=== PATIENT | female | born 1935 | race Caucasian/White ===

== ENCOUNTER → 2023-07-25 10:54 | Outpatient (CLI) | payer MEDICARE, OTHER, SELFPAY ==
--- NOTE | 2023-07-25 | DI.MRI.S_ITS ---
PROCEDURE: MR LUMBAR SPINE WO CON INDICATIONS: LEFT SI RADICULOPATHY TECHNIQUE: Noncontrast sagittal T1 spin echo and T2 fast echo, sagittal STIR, and T2 fast spin echo through the lumbar spine. In cases with scoliosis, additional coronal T2 fast spin echo may be performed. COMPARISON: None. FINDINGS: Image quality: Excellent. Alignment and Curvature: Straightening of the normal lumbar lordosis. Bone Marrow: Multilevel Schmorl's nodes and degenerative endplate changes. Marrow is of normal overall signal. No acute vertebral body compression fractures. Spinal Cord: Conus medullaris terminates at the L1 level. Visualized cord demonstrates normal signal and size. Paraspinous Soft Tissues: No paravertebral masses. T12-L1: Disc desiccation and mild disc bulge. Facet arthropathy. No central canal or neural foraminal stenosis. L1-L2: Disc desiccation and height loss. Posterior disc bulge. Facet arthropathy. No central canal or neural foraminal stenosis. L2-L3: Disc desiccation and height loss. Posterior disc bulge. Facet arthropathy. Mild central canal stenosis. Mild bilateral neural foraminal stenosis. L3-L4: Disc desiccation height loss. Posterior disc bulge. Facet arthropathy. Moderate central canal stenosis. Mild bilateral neural foraminal stenosis. L4-L5: Disc desiccation height loss. Posterior disc bulge. Facet arthropathy. Left laminectomy changes. No central canal stenosis. Mild bilateral neural foraminal stenosis. L5-S1: Disc desiccation height loss. Posterior disc bulge. Facet arthropathy and thickening of ligamentum flavum. Mild central canal stenosis. Moderate right and mild left neural foraminal stenosis. IMPRESSION: 1. Multilevel degenerative changes of the lumbar spine. 2. Moderate central canal stenosis at L3-L4. Mild central canal stenosis at L2-L3 and L5-S1. 3. Moderate right neural foraminal stenosis at L5-S1. Mild multilevel neural foraminal stenosis at other levels. Dictated by: Nitin Ayala M.D. on 07/25/2023 at 15:32 Approved by: Nitin Ayala M.D. on 07/25/2023 at 15:36
== END ==
PROVIDERS: Family Provider Nurse Practitioner; PCP Nurse Practitioner; Referring Provider Orthopaedic Surgery; Visit Provider Orthopaedic Surgery
DX: M47.26 Other spondylosis with radiculopathy, lumbar region (principal); M47.27 Other spondylosis with radiculopathy, lumbosacral region; M48.061 Spinal stenosis, lumbar region without neurogenic claudication; M48.07 Spinal stenosis, lumbosacral region
CPT/HCPCS: 72148